=== PATIENT | male | born 1990 | race Caucasian/White ===

== ENCOUNTER 2024-07-18 17:45 | Inpatient (IN) | payer MEDICAID ==
[~2024-07-18] VITALS: Ht 167.6 cm; Wt 75.2 kg
[2024-07-18 19:33] LABS: COVID AG,FIA SOURCE NASAL SWAB
[2024-07-18 19:50] LABS: SARS-COV2 (COVID) ANTIGEN,FIA Negative (Negative)
[2024-07-18 20:10] LABS: APPEARANCE,URINE CLEAR (CLEAR); BILIRUBIN,URINE NEGATIVE (NEGATIVE); COLOR,URINE COLORLESS (YELLOW); GLUCOSE, URINE (UA) NEGATIVE (NEGATIVE); KETONES,URINE NEGATIVE (NEGATIVE); LEUKOCYTE ESTERASE ,URINE NEGATIVE (NEGATIVE); NITRATE,URINE NEGATIVE (NEGATIVE); OCCULT BLOOD,URINE TRACE (NEGATIVE); PH,URINE 5.5 (5.0-8.0); PH,URINE DRUG SCREEN 5.5 (5.0-8.0); PROTEIN,URINE NEGATIVE (NEGATIVE); SPECIFIC GRAVITIY, URINE 1.006 (1.003-1.030); UROBILINOGEN,URINE <=1.0 mg/dL (<=1.0)
[2024-07-18 20:16] LABS: ALCOHOL, URINE DRUG SCREEN POSITIVE (NEGATIVE); AMPHET/METH SCREEN,URINE NEGATIVE (NEGATIVE); BARBITURATE SCREEN, URINE NEGATIVE (NEGATIVE); BENZODIAZEPINES SCREEN,URINE NEGATIVE (NEGATIVE); CANNABINOID SCREEN,URINE NEGATIVE (NEGATIVE); COCAINE SCREEN,URINE NEGATIVE (NEGATIVE); METHADONE SCREEN, URINE NEGATIVE (NEGATIVE); OPIATE SCREEN,URINE NEGATIVE (NEGATIVE); PHENCYCLIDINE SCREEN,URINE NEGATIVE (NEGATIVE)
[2024-07-18 20:21] LABS: BACTERIA,URINE None Seen /HPF (None Seen); RBC,URINE 0-2 /HPF (0-2); SQUAMOUS EPITHELIAL CELL,UR Rare /LPF (None Seen); WBC,URINE 0-2 /HPF (0-5)
[2024-07-18] MEDS: MAGNESIUM SULFATE 2 GM, MVI, ADULT NO.1 WITH VIT K 10 ML, THIAMINE 100 MG, FOLIC ACID 1... IV ONE (20:33)
[2024-07-18 21:28] LABS: BASOPHILS % (AUTO) 2.3 % (0.0-2.0); EOSINOPHILS % (AUTO) 0.3 % (1.0-6.0); HEMATOCRIT 45.9 % (41-53); HEMOGLOBIN 15.7 g/dL (13.5-17.5); LYMPHOCYTES # (AUTO) 2.5 K/uL (1.0-4.8); LYMPHOCYTES % (AUTO) 49.8 % (22.0-44.0); MEAN CORPUSCULAR HEMOGLOBIN 31.9 pg (26.0-34.0); MEAN CORPUSCULAR HGB CONC 34.2 G/dL (31.0-37.0); MEAN CORPUSCULAR VOLUME 93 fL (80-100); MONOCYTES # (AUTO) 0.9 K/uL (0.1-1.0); MONOCYTES % (AUTO) 18.4 % (2.0-9.0); NEUTROPHILS # (AUTO) 1.4 K/uL (1.8-7.7); NEUTROPHILS % (AUTO) 29.2 % (40.0-70.0); PLATELET COUNT (AUTO) 297 K/uL (150-450); RED BLOOD CELL COUNT(AUTO) 4.91 MIL/uL (4.50-5.90); RED CELL DISTRIBUTION WIDTH 14.6 % (11.5-14.5); WHITE BLOOD COUNT (AUTO) 4.9 K/uL (4.5-11.0)
[2024-07-18 21:34] LABS: ANION GAP 15 mmol/L (8-16); CALCIUM, TOTAL 7.9 mg/dL (8.8-10.5); CARBON DIOXIDE 25 mmol/L (22-29); CHLORIDE 103 mmol/L (98-107); CREATININE 0.71 mg/dL (0.60-1.30); GLOMERULAR FILTR. RATE CALC > 60 mL/min (>60); GLUCOSE,RANDOM 114 mg/dL (70-110); POTASSIUM 3.7 mmol/L (3.5-5.1); SODIUM SERUM 143 mmol/L (136-145); UREA NITROGEN, BLOOD 4 mg/dL (7-18)
[2024-07-18 22:03] LABS: ALCOHOL, BLOOD (SERUM) 332 mg/dL (0-10)
[2024-07-18 22:06] LABS: ALBUMIN 3.6 g/dL (3.4-5.0); BILIRUBIN,DIRECT 0.1 mg/dL (0.00-0.20); BILIRUBIN,TOTAL 0.3 mg/dL (0.1-1.0); TOTAL PROTEIN, SERUM 7.4 g/dL (6.4-8.2)
[2024-07-18] MEDS: LORazepam 2 MG/ML VIAL IVP ONE (22:45)
[2024-07-18] MEDS: MULTIVITAMINS WITH MINERALS, THERAPEUTIC TABLET PO SCH (23:15)
[2024-07-18] MEDS ORDERED: LORazepam 2 MG TABLET PO PRN (23:15)
[2024-07-18] MEDS ORDERED: LORazepam 1 MG TABLET PO PRN (23:15)
[2024-07-18] MEDS ORDERED: ONDANSETRON HCL 4 MG/2 ML VIAL IVP PRN (23:15)
[2024-07-19] MEDS: HEPARIN SODIUM,PORCINE 5,000 UNITS/ML VIAL SQ SCH
[2024-07-19 05:17] VITALS: BP 147/96; PULSE 103; RESP 18; TEMP 97.9; O2SAT 100
[2024-07-19] MEDS: LORazepam 2 MG TABLET PO PRN ×2 (05:41→16:42)
[2024-07-19] MEDS: DOCUSATE SODIUM 100 MG CAPSULE PO SCH (08:36)
[2024-07-19] MEDS ORDERED: LORazepam 2 MG TABLET PO SCH (09:00)
[2024-07-19 09:17] VITALS: BP 136/80; PULSE 105; RESP 20; TEMP 98.6; O2SAT 98
[2024-07-19 11:46] VITALS: BP 130/76; PULSE 105; RESP 19; TEMP 99; O2SAT 97
[2024-07-19] MEDS: DIAZEPAM 5 MG TABLET PO SCH (15:33)
[2024-07-19 16:00] VITALS: BP 135/97; PULSE 112; RESP 18; TEMP 98.9; O2SAT 97
[2024-07-19 19:55] VITALS: BP 129/73; PULSE 99; RESP 18; TEMP 98.7; O2SAT 98
[2024-07-19] MEDS ORDERED: LORazepam 2 MG/ML VIAL IVP SCH (20:00)
[2024-07-19] MEDS: 1: MAGNESIUM SULFATE 2 GM, MVI, ADULT NO.1 WITH VIT K 10 ML, THIAMINE 100 MG, FOLIC ACID IV SCH (20:21)
[2024-07-20 00:14] VITALS: BP 127/74; PULSE 95; RESP 18; TEMP 98; O2SAT 98
[2024-07-20 04:24] VITALS: BP 131/92; PULSE 95; RESP 16; TEMP 98.5; O2SAT 98
[2024-07-20 08:54] VITALS: BP 117/86; PULSE 93; RESP 17; TEMP 99.5; O2SAT 97
[2024-07-20] MEDS ORDERED: SODIUM CHLORIDE 0.9% 1,000 ML ONE (12:14)
[2024-07-20 12:22] VITALS: BP 132/107; PULSE 104; RESP 17; TEMP 100.1; O2SAT 98
[2024-07-20] MEDS: ACETAMINOPHEN 325 MG TABLET PO PRN (12:22)
[2024-07-20 16:01] VITALS: BP 141/101; PULSE 102; RESP 18; TEMP 98; O2SAT 99
[2024-07-20 19:56] VITALS: BP 144/101; PULSE 101; RESP 20; TEMP 98.5; O2SAT 98
[2024-07-21] MEDS ORDERED: SODIUM CHLORIDE 0.9% 1,000 ML ONE ×2 (03:22→12:29)
[2024-07-21 05:45] VITALS: BP 119/75; PULSE 78; RESP 18; TEMP 98.1; O2SAT 96
[2024-07-21] MEDS ORDERED: LORazepam 1 MG TABLET PO PRN (07:00)
[2024-07-21 07:40] VITALS: BP 135/84; PULSE 87; RESP 18; TEMP 98.6; O2SAT 99
[2024-07-21] MEDS ORDERED: LORazepam 1 MG TABLET PO SCH (09:00)
[2024-07-21 15:47] VITALS: BP 142/96; PULSE 105; RESP 18; TEMP 97.8; O2SAT 96
[2024-07-21 17:01] LABS: BASOPHILS % (AUTO) 0.3 % (0.0-2.0); EOSINOPHILS % (AUTO) 0.5 % (1.0-6.0); HEMATOCRIT 46.8 % (41-53); HEMOGLOBIN 15.7 g/dL (13.5-17.5); LYMPHOCYTES % (AUTO) 18.2 % (22.0-44.0); MEAN CORPUSCULAR HEMOGLOBIN 31.5 pg (26.0-34.0); MEAN CORPUSCULAR HGB CONC 33.6 G/dL (31.0-37.0); MEAN CORPUSCULAR VOLUME 94 fL (80-100); MONOCYTES # (AUTO) 0.4 K/uL (0.1-1.0); MONOCYTES % (AUTO) 7.3 % (2.0-9.0); NEUTROPHILS # (AUTO) 3.9 K/uL (1.8-7.7); NEUTROPHILS % (AUTO) 73.7 % (40.0-70.0); PLATELET COUNT (AUTO) 196 K/uL (150-450); RED BLOOD CELL COUNT(AUTO) 4.99 MIL/uL (4.50-5.90); RED CELL DISTRIBUTION WIDTH 14.2 % (11.5-14.5); WHITE BLOOD COUNT (AUTO) 5.3 K/uL (4.5-11.0)
[2024-07-21 17:06] LABS: ALANINE AMINOTRANSFERASE 138 U/L (12-78); ALBUMIN 3.3 g/dL (3.4-5.0); ALKALINE PHOSPHATASE 124 U/L (46-116); ANION GAP 13 mmol/L (8-16); ASPARTATE AMINOTRANSFERASE 88 U/L (15-37); BILIRUBIN,TOTAL 0.3 mg/dL (0.1-1.0); CALCIUM, TOTAL 8.3 mg/dL (8.8-10.5); CARBON DIOXIDE 24 mmol/L (22-29); CHLORIDE 101 mmol/L (98-107); CREATININE 0.69 mg/dL (0.60-1.30); GLOMERULAR FILTR. RATE CALC > 60 mL/min (>60); GLUCOSE,RANDOM 116 mg/dL (70-110); POTASSIUM 3.9 mmol/L (3.5-5.1); SODIUM SERUM 138 mmol/L (136-145); TOTAL PROTEIN, SERUM 7.4 g/dL (6.4-8.2); UREA NITROGEN, BLOOD 6 mg/dL (7-18)
[2024-07-21 20:07] VITALS: BP 151/91; PULSE 107; RESP 18; TEMP 98.8; O2SAT 97
[2024-07-22 05:25] VITALS: BP 137/85; PULSE 108; RESP 18; TEMP 98.7; O2SAT 96
[2024-07-22 08:27] VITALS: BP 140/87; PULSE 102; RESP 18; TEMP 98.4; O2SAT 96
[2024-07-22] MEDS ORDERED: DIAZ-328 PO (10:57)
[2024-07-22] MEDS: LORazepam 1 MG TABLET PO PRN (11:29)
[2024-07-22] MEDS ORDERED: DIAZ2 PO (11:47)
== END 2024-07-22 12:22 | disposition home or self-care (01) | DRG 52 ==
LOC: EMS 17:45 → EDH 23:16 → 5S 07-19 05:17 → 4E 07-20 10:36 → 6S 07-20 18:15
PROVIDERS: ADMIT Internal Medicine; ATTEND Internal Medicine
PROC: GZ56ZZZ Individual Psychotherapy, Supportive (ICD-10-PCS; principal; 2024-07-20)
DX: G92.9 Unspecified toxic encephalopathy (principal); R45.851 Suicidal ideations; K70.10 Alcoholic hepatitis without ascites; R74.01 Elevation of levels of liver transaminase levels; R50.9 Fever, unspecified; F10.139 Alcohol abuse with withdrawal, unspecified; F41.9 Anxiety disorder, unspecified; Y90.8 Blood alcohol level of 240 mg/100 ml or more; Z20.822 Contact with and (suspected) exposure to COVID-19; Z59.00 Homelessness unspecified
CPT/HCPCS: 71045; 80048; 80076; 80307; 81001; 83690; 83735; 85025; 99285; G0378; G0480; J1644; J2060; J3411; J3475; J3490; J7030; 36415-L1; 36415-TC